=== PATIENT | female | born 1980 | race Caucasian/White ===

== ENCOUNTER 2017-10-06 08:54 | Inpatient (IN) | payer MEDICAID ==
[~2017-10-06] VITALS: Ht 167.6 cm; Wt 99.0 kg
[2017-10-06 11:20] VITALS: BP 143/69; PULSE 106; RESP 18; TEMP 98.6; O2SAT 96
[2017-10-06] MEDS ORDERED: NICOTINE 21 MG/24 HR PATCH T-DERMAL PRN (11:45)
[2017-10-06] MEDS ORDERED: MAGNESIUM HYDROXIDE SUSP 30 ML CUP PO PRN (11:45)
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
[2017-10-06] MEDS: LISINOPRIL 10 MG TAB PO SCH (14:00)
[2017-10-06] MEDS: HYDROCHLOROTHIAZIDE 12.5 MG CAP PO SCH (14:00)
[2017-10-06] MEDS: ATORVASTATIN 10 MG TAB PO SCH (14:29)
[2017-10-06] MEDS: ALPRAZolam 0.25 MG TAB PO PRN (14:41)
[2017-10-06] MEDS: FLUoxetine HCL 20 MG CAP PO SCH (20:25)
[2017-10-06] MEDS: traZODone HCL 100 MG TAB PO PRN (20:53)
[2017-10-07 05:55] VITALS: BP 115/58; PULSE 67; RESP 16; TEMP 98.1; O2SAT 97
[2017-10-07] MEDS ORDERED: REMOVE OLD PATCH T-DERMAL PRN (09:00)
[2017-10-07] MEDS: HYDROCHLOROTHIAZIDE 12.5 MG CAP PO SCH (09:03)
[2017-10-07] MEDS: LISINOPRIL 10 MG TAB PO SCH (09:03)
[2017-10-07] MEDS: ATORVASTATIN 10 MG TAB PO SCH (09:03)
[2017-10-07] MEDS: ALPRAZolam 0.25 MG TAB PO PRN ×2 (09:19→20:30)
[2017-10-07 09:50] LABS: BICARBONATE 27.8 MEQ/L (21.0-32.0); BLOOD UREA NITROGEN 9 MG/DL (7-18); CALCIUM 8.6 MG/DL (8.5-10.1); CHLORIDE 103 MEQ/L (98-107); CREATININE 0.77 MG/DL (0.50-1.00); GLOMERULAR FILTRATION RATE 84 ML/MIN (>89); GLUCOSE,RANDOM 146 MG/DL (74-106); SODIUM (NA) 138 MEQ/L (136-145)
[2017-10-07 09:52] LABS: CHOLESTEROL 153 MG/DL (120-200); TRIGLYCERIDES 194 MG/DL (42-150)
[2017-10-07 09:54] LABS: CHOLESTEROL/ HDL RATIO 4.46 RATIO; HDL CHOLESTEROL 34.3 MG/DL (40.0-60.0); LDL CHOLESTEROL 80 MG/DL (0-99)
[2017-10-07 11:41] LABS: HEMOGLOBIN A1C 5.6 % (4.3-6.0)
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
[2017-10-07] MEDS: ACETAMINOPHEN 325 MG TAB PO PRN ×2 (15:34→21:31)
[2017-10-07 18:47] VITALS: BP 133/61; PULSE 79; RESP 17; TEMP 98; O2SAT 96
[2017-10-07] MEDS: FLUoxetine HCL 20 MG CAP PO SCH (20:30)
[2017-10-07] MEDS: ALUMINUM/MAGNESIUM/SIMETH 30 ML CUP PO PRN (20:30)
[2017-10-07] MEDS: traZODone HCL 100 MG TAB PO PRN (21:32)
[2017-10-08] MEDS: ACETAMINOPHEN 325 MG TAB PO PRN (05:15)
[2017-10-08 05:38] VITALS: BP 106/55; PULSE 74; RESP 18; TEMP 97.6; O2SAT 97
[2017-10-08] MEDS: HYDROCHLOROTHIAZIDE 12.5 MG CAP PO SCH (09:16)
[2017-10-08] MEDS: ATORVASTATIN 10 MG TAB PO SCH (09:16)
[2017-10-08] MEDS: LISINOPRIL 10 MG TAB PO SCH (09:16)
[2017-10-08] MEDS: ALPRAZolam 0.25 MG TAB PO PRN ×2 (09:29→21:45)
[2017-10-08] MEDS: ALUMINUM/MAGNESIUM/SIMETH 30 ML CUP PO PRN ×2 (09:29→20:00)
--- NOTE | 2017-10-08 10:59 | HHI.PYPN ---
Subjective Chief Complaint: Depression, suicidal statements Remarks Patient seen and examined with nurse. Chart reviewed. Case discussed with nursing staff. Nurse reports that patient is getting along quite well with roommate. On my examination today, mood is slowly improving. Affect is brighter versus previous contact. She denies suicidal ideation. Denies AVH. Denies side effects from medications. Complaining of headache, reportedly secondary to caffeine withdrawal. No other physical complaints. Review of Systems Except as stated in HPI: all other systems reviewed are Neg Mental Status Examination Appearance: Appropriate Consciousness: Alert Orientation: x4 Motor Activity: Other (No motor abnormalities noted) Speech: Unremarkable Language: Adequate Fund of Knowledge: Adequate Attention and Concentration: Adequate Memory: Unremarkable (Grossly intact on clinical exam) Mood: Other (Mood improving) Affect: Blunt Thought Process & Associations: Intact, Logical, Linear Thought Content: Appropriate Hallucination Type: None Delusion Type: None Suicidal Ideation: No Suicidal Plan: No Suicidal Intention: No Homicidal Ideation: No Homicidal Plan: No Homicidal Intention: No Insight: Adequate Judgment: Adequate Results Labs Labs reviewed Vitals/IOs Vital Signs Date Time Temp Pulse Resp B/P (MAP) Pulse Ox O2 Delivery O2 Flow Rate FiO2 10/08/17 05:38 97.6 74 18 106/55 (72) 97 Assessment & Plan Problem List: (1) Adjustment disorder with depressed mood ICD Codes: F43.21 - Adjustment disorder with depressed mood Assessment & Plan Continue current psychotropics as ordered. To consider further titration of patient's Prozac. Ibuprofen for headache. Continue to monitor on the inpatient unit. Continue other medications and care as ordered. Justification for Cont. Inpt. Risk for decompensation in less restrictive environment. Discharge Planning Pending psychiatric stabilization. Request HC Surrog/Guard Advoc?: No Bandar Sanderson MD October 08, 2017 10:59
[2017-10-08 17:03] VITALS: BP 125/76; PULSE 76; RESP 18; TEMP 98.4; O2SAT 98
[2017-10-08] MEDS: FLUoxetine HCL 20 MG CAP PO SCH (20:24)
[2017-10-08] MEDS: IBUPROFEN 600 MG TAB PO PRN (20:24)
[2017-10-08] MEDS: traZODone HCL 100 MG TAB PO PRN (21:28)
[2017-10-09 06:33] VITALS: BP 108/52; PULSE 75; RESP 18; TEMP 98.3; O2SAT 98
[2017-10-09] MEDS: IBUPROFEN 600 MG TAB PO PRN (06:54)
[2017-10-09] MEDS: LISINOPRIL 10 MG TAB PO SCH (08:20)
[2017-10-09] MEDS: ATORVASTATIN 10 MG TAB PO SCH (08:20)
[2017-10-09] MEDS: HYDROCHLOROTHIAZIDE 12.5 MG CAP PO SCH (08:21)
[2017-10-09] MEDS: ALPRAZolam 0.25 MG TAB PO PRN (09:18)
[2017-10-09] MEDS ORDERED: TRAZ50TA12 PO (11:02)
[2017-10-09] MEDS ORDERED: ALPR.25 PO (11:02)
[2017-10-09] MEDS ORDERED: LISI10TA3 PO (11:02)
[2017-10-09] MEDS ORDERED: FLUO20CA12 PO (11:02)
[2017-10-09] MEDS ORDERED: LIPI10TA PO (11:02)
[2017-10-09] MEDS ORDERED: HYDR12.57 PO (11:02)
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
[2017-10-09] MEDS: ALUMINUM/MAGNESIUM/SIMETH 30 ML CUP PO PRN (14:14)
--- NOTE | 2017-10-09 16:32 | PD.TTN ---
Patient Problems 1. Discharge planning 2. Medication compliance 3. Knowledge deficit 4. Lack of coping skills Progress Toward Goals Provider Present: Dr. Tobin Sanderson Provider Input: Dr. Sanderson's had his treatment team meeting to discuss patient's treatment plan, discharge and medication. Patient is presenting better and will be discharged today. Nurse(s) Input: Patient's nurse reports patient is doing well, medication compliant. no behavioral problems on unit Psychiatric Counselors Present: Roro Julio [facility] Psych Therapist Input: Patient presented cooperative, pleasant, affect appropriate. Patient's affect is appropriate. Patient is being discharged home and will follow up with [facility]. Patient is alert and oriented x5. Patient' s speech is clear and appropriate. Group Spec/RT/OT/MILLER Present: PAUL Spaulding Group Spec/RT/OT/MILLER Input: Patient attends groups appropriately Roro Julio [facility] October 09, 2017 16:32
== END 2017-10-09 16:00 | disposition home or self-care (01) | DRG 881 ==
LOC: H260 11:26
PROVIDERS: ADMIT Psychiatry & Neurology Psychiatry; ATTEND Psychiatry & Neurology Psychiatry
DX: F43.21 Adjustment disorder with depressed mood (principal); I10 Essential (primary) hypertension; E78.5 Hyperlipidemia, unspecified; R51 Headache
CPT/HCPCS: 80048; 80061; 83036

== ENCOUNTER 2017-11-01 09:48 | Emergency (ER) | payer MEDICAID, OTHER ==
[~2017-11-01 09:48] MED LIST: ALPR.25 PO; FLUO20CA12 PO; HYDR12.57 PO; LIPI10TA PO; LISI10TA3 PO; TRAZ50TA12 PO
[2017-11-01 09:52] VITALS: BP 141/67; PULSE 70; RESP 17; TEMP 98.3; O2SAT 98
[2017-11-01] MEDS ORDERED: FLUO20CA12 PO (10:24)
[2017-11-01] MEDS ORDERED: LISI10TA PO (10:24)
[2017-11-01] MEDS ORDERED: LIPI10TA PO (10:24)
[2017-11-01] MEDS ORDERED: TRAZ50TA12 PO (10:24)
--- NOTE | 2017-11-01 10:25 | PD ---
HPI Chief Complaint: Medication Refill Request Time Seen by Provider: 09:58 Travel History International Travel<30 days: No Contact w/Intl Traveler<30days: No Traveled to known affect area: No History of Present Illness HPI 37-year-old female presents to the emergency department requesting medication refills on trazodone, Prozac, lisinopril/hydrochlorothiazide, atorvastatin. She has been out of her medications for 1 week. She does not have a primary care provider and cannot afford to see one. She was told if she needed medication refills to come to the ER. She has tried establishing care at a free clinic in [place] now, but her application has not been processed yet. She denies suicidal or homicidal ideations. She has no other medical complaints. Symptoms are mild in severity. Onset unknown. Duration unknown. No known aggravating or relieving factors. No known allergies. No primary care provider. History of hypertension, hypercholesterolemia, insomnia, depression, anxiety. No other modifying factors or associated signs and symptoms. PFSH Past Medical History Arthritis: Yes (lower back) Autoimmune Disease: No Anxiety: Yes Depression: Yes High Cholesterol: Yes ( ) Chemotherapy: No Endocrine: No Gastrointestinal Disorders: Yes Genitourinary: No Hypertension: Yes Immune Disorder: No Musculoskeletal: Yes (bilateral shoulder pain, left hip pain after resting) Neurologic: Yes Psychiatric: Yes (Depression, anxiety) Reproductive: No Respiratory: No Migraines: Yes (under stress) Radiation Therapy: No Thyroid Disease: No ?: Not LMP: states none since surgery Tubal Ligation: Yes Past Surgical History Abdominal Surgery: Yes (gallbladder removal) AICD: No Arteriovenous Shunt: No Cardiac Surgery: No Genitourinary Surgery: No Gynecologic Surgery: Yes (tubal ligation, ablation in cervix) Insulin Pump: Yes Joint Replacement: No Pacemaker: No Thoracic Surgery: No Social History Alcohol Use: No Tobacco Use: No Substance Use: No Allergies-Medications (Allergen,Severity, Reaction): Coded Allergies: No Known Allergies (Unverified Allergy, Unknown, 10/06/17) Reported Meds & Prescriptions Reported Meds & Active Scripts Active Lisinopril-Hctz 10-12.5 Mg Tab 1 Tab PO DAILY Fluoxetine (Fluoxetine HCl) 20 Mg Capsule 40 Mg PO HS 30 Days Trazodone (Trazodone HCl) 50 Mg Tab 100 Mg PO HS PRN 7 Days Home med. Order is to update med rec. Lipitor (Atorvastatin Calcium) 10 Mg Tab 10 Mg PO DAILY Home med. Order is to update med rec. Lisinopril 10 Mg Tab 10 Mg PO DAILY Home med. Order is to update med rec. Hydrochlorothiazide 12.5 Mg Cap 12.5 Mg PO DAILY Home med. Order is to update med rec. Xanax (Alprazolam) 0.25 Mg Tab 0.25 Mg PO Q6H PRN Home med. Order is to update med rec. Review of Systems Except as stated in HPI: all other systems reviewed are Neg Physical Exam Narrative GENERAL: Well-nourished, well-developed female patient, in no acute distress SKIN: Warm and dry. HEAD: Atraumatic. Normocephalic. EYES: Pupils equal and round. No scleral icterus. No injection or drainage. ENT: Mucosa pink and moist. Airway patent. NECK: Trachea midline. CARDIOVASCULAR: Regular rate. RESPIRATORY: No accessory muscle use. GASTROINTESTINAL: Rounded. MUSCULOSKELETAL: No obvious deformities. No clubbing. No cyanosis. No edema. NEUROLOGICAL: Awake and alert. Oriented 3. No obvious cranial nerve deficits. Motor grossly within normal limits. Normal speech. PSYCHIATRIC: Appropriate mood and affect; insight and judgment normal. Data Data Last Documented VS Vital Signs Date Time Temp Pulse Resp B/P (MAP) Pulse Ox O2 Delivery O2 Flow Rate FiO2 11/01/17 09:52 98.3 70 17 141/67 (91) 98 Orders Orders Ed Discharge Order (11/01/17 10:25) MDM Medical Decision Making Medical Screen Exam Complete: Yes Emergency Medical Condition: Yes Medical Record Reviewed: Yes Differential Diagnosis Medication refill, medical clearance, hypertension, anxiety, depression, hypercholesterolemia, insomnia Narrative Course 37-year-old female requesting medication refills. I will provide the patient refills on lisinopril/hydrochlorothiazide, atorvastatin, and Prozac for 1 month. I will provide a prescription for trazodone for 1 week. I discussed with the patient that she needs to follow-up outpatient for continued refills on Prozac and trazodone. Discussed this is a one-time refill in the ER for Prozac and trazodone. Patient verbalized understanding and agreement. I provided the patient with outpatient resources to [facility] for follow-up. Discussed [facility] and [facility] for outpatient follow-up and medication refills. Instructed patient to follow up with primary care provider. Patient verbalizes understanding and agreement with treatment plan. Patient is medically cleared and stable for discharge. Discussed reasons to return to the emergency department. Patient agrees with treatment plan. The patients vital signs are stable and the patient is stable for outpatient follow- up and treatment. Patient discharged home, stable and in no acute distress. Diagnosis Primary Impression: Medication refill Referrals: [facility] (Out patient) [facility] Primary Care Physician Psychiatrist [facility] Patient Instructions: General Instructions, Medication Refill, ED Additional Instructions: Continue medications as prescribed Follow-up at [facility] Follow-up with psychiatry Follow-up with primary care provider Follow-up with [facility] Return to the emergency department immediately with worsening of symptoms Med/Other Pt SpecificInfo: Prescription(s) given Scripts Lisinopril-Hctz (Lisinopril-Hctz) 10-12.5 Mg Tab 1 TAB PO DAILY for Blood Pressure Management, #30 TAB 0 Refills Prov: Hodan Quinonez 11/01/17 Fluoxetine (Fluoxetine) 20 Mg Capsule 40 MG PO HS for Mental Health for 30 Days, CAP 1 Refill Prov: Hodan Quinonez 11/01/17 Trazodone (Trazodone) 50 Mg Tab 100 MG PO HS Y for INSOMNIA for 7 Days, TAB 0 Refills Home med. Order is to update med rec. Prov: Hodan Quinonez 11/01/17 Atorvastatin (Lipitor) 10 Mg Tab 10 MG PO DAILY for Cholesterol Management, #30 TAB 0 Refills Home med. Order is to update med rec. Prov: Hodan Quinonez 11/01/17 Disposition: 01 DISCHARGE HOME Condition: Stable Hodan Quinonez Nov 01, 2017 10:25
== END 2017-11-01 10:40 | disposition home or self-care (01) ==
LOC: NEPK 09:48
DX: I10 Essential (primary) hypertension (principal); E78.00 Pure hypercholesterolemia, unspecified; F41.8 Other specified anxiety disorders; Z87.39 Personal history of other diseases of the musculoskeletal system and connective tissue; Z87.19 Personal history of other diseases of the digestive system; Z86.69 Personal history of other diseases of the nervous system and sense organs; Z76.0 Encounter for issue of repeat prescription
CPT/HCPCS: 99281